=== PATIENT | female | born 1945 | race Caucasian/White ===

== ENCOUNTER → 2016-09-23 | Outpatient (REF) ==
[~2016-09-23] MED LIST: ADVAIR 100/28 DISKU1 IH; CALCIUM WITH D1 CTB PO; CALCIUM600 M2 PO; CIALIS10 MG PO; CIALIS20 MG PO; CIPRO 250MG TA250 MG PO; COZAAR 50MG50 MG/TAB PO; COZAAR50 MG PO; ESTRACE0.5 MG PO; EXELON PAT4.6 MG/24 TD; EXELON13.3TDM TD; EXELON9.5 MG/24 TD; FERROUS SULFATE65 MG PO; FISH OIL1 IU PO; FISH OIL1000 MG PO; FOLIC ACID 40400 MCG PO; FOLIC ACID0.4 MG PO; FOSAMAX PLUS D1 TAB PO; GLUCOSAMINE SU500 MG PO; GLUCOSAMINE500 M2 PO; JANTOVEN5 MG PO; JANTOVEN7.5 MG PO; LEVOTHYROXIN0.025 MG PO; LIPITOR20 MG PO; LIPOFLAVONOID1 GEL PO; LOVENOX 6060 MG/0.6 SQ; LUNESTA3 MG PO; MASON NATURAL1200 MG PO; MULTIVITAMIN FO1 CAP PO; NAMENDA 10MG TA10 MG PO; NATURAL IRON65 MG PO; NIFEDICAL XL60 MG PO; NORCO 325 MG-51 TAB PO; OMEGA-3 FISH1200 MG PO; PARCOPA 25/101 UDTAB PO; PREMARIN .3MG0.3 MG PO; PRILOSEC 20MG20 MG PO; RESTASIS0.05% OP; RT ADVAIR 228 DISKUS IH; STOOL SOFTENER100 M2 PO; THERATEARS PO; TIROSINT25 MCG PO; TRIPLE ANTIBIOT TP; TYLENOL 325MG325 MG PO; VITAMIN D31000 IU PO; WARFARIN10 MG PO; ZOLOFT 50MG50 MG PO; ZOLPIDEM10 MG PO; [UNRECOGNIZED DRUG - OTHER] PO; [UNRECOGNIZED DRUG - OTHER] PO; [UNRECOGNIZED DRUG - OTHER] PO
[2016-09-23 18:27] LABS: HEMATOCRIT 34.9 % (37.0-47.0)
[2016-09-23 18:40] LABS: CALCIUM 9.8 mg/dL (8.4-10.2); CREATININE, serum 1.34 mg/dL (0.52-1.25); POTASSIUM 4.8 mmol/L (3.4-5.0)
== END ==
LOC: ZCOL.LAB 18:16
PROVIDERS: Internal Medicine
DX: Z01.89 Encounter for other specified special examinations (principal)

== ENCOUNTER → 2018-04-29 | Outpatient (CLI) | payer MEDICARE, BC | LOC: COL.RAD 08:31 | DX: R13.12 Dysphagia, oropharyngeal phase (principal) ==

== ENCOUNTER → 2018-06-19 | Outpatient (REF) ==
[2018-06-19 13:33] LABS: COLLECTION METHOD CATHETER
[2018-06-19 13:43] LABS: MUCOUS Present /lpf; PH 5 (5-8); SQUAMOUS EPITHELIAL 0-2 /hpf; URINE APPEARANCE Cloudy; URINE BACTERIA Many /hpf; URINE BILIRUBIN Negative (NEGATIVE); URINE BLOOD Negative (NEGATIVE); URINE COLOR Yellow; URINE GLUCOSE Negative (NEGATIVE); URINE KETONE Trace (NEGATIVE); URINE LEUKOCYTE ESTERASE 3+ (NEGATIVE); URINE NITRATE Positive (NEGATIVE); URINE PROTEIN(semi-quant) 1+ (NEGATIVE); URINE RBC 20-50 /hpf; URINE UROBILINOGEN Negative (NEGATIVE)
== END ==
LOC: ZCOL.LAB 13:31
PROVIDERS: Internal Medicine
DX: Z01.89 Encounter for other specified special examinations (principal)